=== PATIENT | male | born 1995 | race African-American/Black ===

== ENCOUNTER 2016-12-08 19:13 | Emergency (ER) | payer BC ==
[2016-12-08 19:21] VITALS: BP 165/91; PULSE 116; TEMP 99.5; BMI 33.7
[2016-12-08 19:35] LABS: PH,URINE 5.5 (4.5-8); URINE APPEARANCE Clear; URINE BILIRUBIN Negative (NEGATIVE); URINE BLOOD Negative (NEGATIVE); URINE GLUCOSE (UA) Negative (NEGATIVE); URINE KETONE Negative (NEGATIVE); URINE LEUK ESTERASE Negative (NEGATIVE); URINE NITRITE Negative (NEGATIVE); URINE PROTEIN Negative (NEGATIVE); URINE UROBILINOGEN 0.2 E.U/dl (0.2-1.0)
[2016-12-08 19:36] LABS: URINE COLOR YELLOW
--- NOTE | 2016-12-08 19:45 | PDOC ---
[id number] No Limitations - History of Present Illness Initial Comments: 12/08/16 19:45 The patient is a 21 year old male, with no significant past medical history, who presents today for a STD check. The patient reports intermittent tingling upon urination. The patient reports that he does not think he had any sexual intercourse with someone who has any STDs. The patient states that he had chlamydia in the summer of 2016 and these symptoms feel similar to those that he experienced in the past. Denies frequent urination, hematuria. Denies penile discharge, burning. Denies rash. Denies fever, chills, nausea, vomiting. Allergies: none reported <Noreen White - Last Filed: 12/08/16 19:45> <Sharron Jarquin - Last Filed: 12/20/16 03:48> - General Chief Complaint: Urinary Problem Stated Complaint: STD Time Seen by Provider: 12/08/16 19:17 Past History <Noreen White - Last Filed: 12/08/16 19:45> - Past Medical History Other medical history: ADHD - Psycho/Social/Smoking Cessation Hx Anxiety: No Suicidal Ideation: No Smoking History: Never smoked Have you smoked in the past 12 months: No Information on smoking cessation initiated: No Hx Alcohol Use: Yes (OCCAS) Drug/Substance Use Hx: Yes Substance Use Type: Marijuana <Sharron Jarquin - Last Filed: 12/20/16 03:48> - Past Medical History Allergies/Adverse Reactions: Allergies Allergy/AdvReac Type Severity Reaction Status Date / Time No Known Allergies Allergy Verified 12/08/16 19:15 Home Medications: Ambulatory Orders NK [No Known Home Medication] 12/08/16 Review of Systems - Review of Systems Able to Perform ROS?: Yes Comments:: 12/08/16 19:45 CONSTITUTIONAL: Absent: fever, no chills, no fatigue EYES: Absent: visual changes ENT: Absent: ear pain, no sore throat CARDIOVASCULAR: Absent: chest pain, no palpitations RESPIRATORY: Absent: cough, no SOB GI: Absent: abdominal pain, no nausea, no vomiting, no constipation, no diarrhea GENITOURINARY: Present: tingling upon urination. Absent: dysuria, no frequency, no hematuria MUSCULOSKELETAL: Absent: back pain, no arthralgia, no myalgia SKIN: Absent: rash NEURO: Absent: headache <Noreen White - Last Filed: 12/08/16 19:45> *Physical Exam - Vital Signs Last Vital Signs Temp Pulse Resp BP Pulse Ox 99.5 F 116 H 20 165/91 97 12/08/16 19:16 12/08/16 19:16 12/08/16 19:16 12/08/16 19:16 12/08/16 19:16 - Physical Exam Comments: 12/08/16 19:45 GENERAL: The patient is awake, alert, and fully oriented, in no acute distress. HEAD: Normal with no signs of trauma. EYES: Pupils equal, round and reactive to light, extraocular movements intact, sclera anicteric, conjunctiva clear with no pallor. ENT: Ears normal, nares patent, oropharynx clear without exudates. Moist mucous membranes. NECK: Normal range of motion, supple without lymphadenopathy, JVD, or masses. LUNGS: Breath sounds equal, clear to auscultation bilaterally. No wheeze/ crackles. HEART: Regular rate and rhythm, normal S1 and S2 without murmur or rub. ABDOMEN: Soft/nontender/nondistended. BS wnl. No guarding or rebound. No palpable masses. No hepatosplenomegaly. GENITAL: Circumcised male with normal genitalia. No ulcers. No penile discharge. No masses or tenderness of the scrotum. EXTREMITIES: Normal range of motion, no edema. No clubbing or cyanosis. No cords, erythema, or tenderness. NEUROLOGICAL: Cranial nerves II through XII grossly intact. Normal speech, normal gait. PSYCH: Normal mood, normal affect. SKIN: Warm, Dry, normal turgor, no rashes or lesions noted. <Noreen White - Last Filed: 12/08/16 19:45> - Vital Signs Last Vital Signs Temp Pulse Resp BP Pulse Ox 99.5 F 116 H 20 165/91 97 12/08/16 19:16 12/08/16 19:16 12/08/16 19:16 12/08/16 19:16 12/08/16 19:16 <Sharron Jarquin - Last Filed: 12/20/16 03:48> ED Treatment Course - ADDITIONAL ORDERS Additional order review: Laboratory Results 12/08/16 19:10 Urine Color Yellow Urine Appearance Clear Urine pH 5.5 Ur Specific [place] 1.025 Urine Protein Negative Urine Glucose (UA) Negative Urine Ketones Negative Urine Blood Negative Urine Nitrite Negative Urine Bilirubin Negative Urine Urobilinogen 0.2 e.u/dl Ur Leukocyte Esterase Negative <Noreen White - Last Filed: 12/08/16 19:45> - ADDITIONAL ORDERS Additional order review: Laboratory Results 12/08/16 19:10 Urine Color Yellow Urine Appearance Clear Urine pH 5.5 Ur Specific [place] 1.025 Urine Protein Negative Urine Glucose (UA) Negative Urine Ketones Negative Urine Blood Negative Urine Nitrite Negative Urine Bilirubin Negative Urine Urobilinogen 0.2 e.u/dl Ur Leukocyte Esterase Negative <Sharron Jarquin - Last Filed: 12/20/16 03:48> Progress Note - Progress Note Progress Note: Documentation has been prepared under my direction and personally reviewed by me in its entirety. I attest that this documented accurately reflects all work, treatment, procedures and medical decision making performed by me. <Sharron Jarquin - Last Filed: 12/20/16 03:48> Medical Decision Making - Medical Decision Making as noted above, this 21-year old male with 1 previous episode of chlamydia presents with a few day history of burning with urination. No urethral discharge or other abnormality noted.He denies sexual contact with any person who has current STD. Patient denies any significant past medical history. Physical exam, as noted, is normal. Urinalysis shows no abnormality Urethral swab chlamydia/GC testing sent since the patient has no discharge and denies contact with known STD, no antibiotic empirical treatment will be given now. Patient will be contacted if chlamydial/GC test is positive.the patient has no urologist; he was given referral information for Dr. Matamoros. He should Follow-up with him if he has persistent dysuria or other new symptoms. <Sharron Jarquin - Last Filed: 12/20/16 03:48> *DC/Admit/Observation/Transfer - Attestations Scribe Attestion: 12/08/16 19:46 Documentation prepared by FAUSTINA Simeon, acting as medical claims analyst for Sharron Jarquin MD. <Noreen White - Last Filed: 12/08/16 19:45> <Sharron Jarquin - Last Filed: 12/20/16 03:48> Diagnosis at time of Disposition: Dysuria - Discharge Dispostion Disposition: HOME Condition at time of disposition: Stable - Referrals Referrals: Bull Burk [Primary Care Provider] - Braulio Fowler MD [Staff Physician] - 14 days - Patient Instructions Printed Discharge Instructions: DI for Dysuria -- Adult Additional Instructions: drink plenty of water Return or see your doctor if you develop more severe pain/discharge followup with urologist(Dr Fowler) if burning persists
== END 2016-12-08 20:15 | disposition home or self-care (01) ==
LOC: FER 19:13
DX: R30.0 Dysuria (principal); F90.9 Attention-deficit hyperactivity disorder, unspecified type
CPT/HCPCS: 36415; 81003; 87491; 87591; 99282-25